=== PATIENT | female | born 1970 | race Caucasian/White ===

== ENCOUNTER 2023-07-07 15:18 | Outpatient (CLI) | payer BC, SELFPAY | END 2023-07-07 15:19 | disposition home or self-care (01) | PROVIDERS: PCP Physician Assistant Medical; Visit Provider Physician Assistant Medical | DX: E87.6 Hypokalemia (principal); I10 Essential (primary) hypertension; I21.4 Non-ST elevation (NSTEMI) myocardial infarction; E78.5 Hyperlipidemia, unspecified | CPT/HCPCS: 80076; 83735; 84443; 87086 ==

== ENCOUNTER 2023-07-15 12:40 | Outpatient (CLI) | payer BC, SELFPAY | END 2023-07-15 12:41 | disposition home or self-care (01) | PROVIDERS: PCP Physician Assistant Medical; Visit Provider Family Medicine | DX: E78.5 Hyperlipidemia, unspecified (principal) | CPT/HCPCS: 80061 ==

== ENCOUNTER 2023-07-31 12:42 | Outpatient (CLI) | payer BC, SELFPAY ==
--- NOTE | 2023-07-31 13:00 | CRLHL7_ITS ---
For Patients: As a result of the Century Cures Act, medical imaging exams and procedure reports are released immediately into your electronic medical record. You may view this report before your referring provider. If you have questions, please contact your health care provider. INDICATION: Thoracic aneurysm TECHNIQUE: CT chest, abdomen and pelvis acquired with IV contrast. COMPARISON: CT 04/01/2022 FINDINGS: Rim calcified left thyroid nodule. Chest: Cardiovascular structures: 4.4 centimeter ascending thoracic aortic aneurysm. This is without significant change. Heart size normal. Normal caliber thoracic aorta. Mediastinum and mary: No mass or adenopathy. Lungs: Subpleural 5 millimeter nodule left lower lobe 4/65 unchanged Sears with Pleura and pericardium: No effusions. Chest wall and axilla: No mass or adenopathy. Abdomen and Pelvis: Liver: Fatty appearance of the liver. Liver is enlarged. Spleen: Unremarkable. Pancreas: Unremarkable. Gallbladder and bile ducts: Unremarkable. Kidneys: There is a cortical scarring within the left kidney. Kidneys otherwise unremarkable Adrenal glands: Unremarkable. GI tract: Diverticulosis. Vascular structures: Unremarkable. Lymph nodes: Unremarkable. Miscellaneous:. Small fat containing inguinal hernias. Pelvic Organs: Unremarkable. Bones: Unremarkable for age. IMPRESSION: 1. 4.5 centimeter ascending thoracic aortic aneurysm without change. 2. 5 millimeter peripheral left lower lobe nodule unchanged follow-up per Fleischner society guidelines. 3. Hepatomegaly. Fatty liver. Please note that all CT scans at this facility use dose modulation, iterative reconstruction, and/or weight-based dosing when appropriate to reduce radiation dose to as low as reasonably achievable. Dictated by Joselin Low MD @ 08/02/2023 1:54:51 PM (Electronically Signed)
[2023-07-31] MEDS: PERFLUTREN LIPID MICROSPHERES 2 ML VIAL IV (15:02)
== END 2023-07-31 12:43 | disposition home or self-care (01) ==
LOC: CT 12:43
PROVIDERS: PCP Physician Assistant Medical; Visit Provider Physician Assistant Medical
DX: I71.20 Thoracic aortic aneurysm, without rupture, unspecified (principal); K76.0 Fatty (change of) liver, not elsewhere classified
CPT/HCPCS: 71260; 74177; 93306; Q9957; Q9967

== ENCOUNTER 2024-02-02 09:47 | Outpatient (CLI) | payer BC, SELFPAY | END 2024-02-02 09:48 | disposition home or self-care (01) | PROVIDERS: PCP Physician Assistant Medical; Visit Provider Physician Assistant Medical | DX: E78.2 Mixed hyperlipidemia (principal) | CPT/HCPCS: 80053; 80061; 84443 ==

== ENCOUNTER 2024-09-23 14:50 | Outpatient (CLI) | payer BC, SELFPAY | END 2024-09-23 14:51 | disposition home or self-care (01) | PROVIDERS: PCP Physician Assistant Medical; Visit Provider Physician Assistant Medical | DX: F10.10 Alcohol abuse, uncomplicated (principal); F41.9 Anxiety disorder, unspecified; F32.A Depression, unspecified | CPT/HCPCS: 80053; 82607; 82746; 84425 ==

== ENCOUNTER 2024-10-27 10:37 | Outpatient (CLI) | payer BC, SELFPAY | END 2024-10-27 10:38 | disposition home or self-care (01) | PROVIDERS: PCP Physician Assistant Medical; Visit Provider Physician Assistant Medical | DX: R79.89 Other specified abnormal findings of blood chemistry (principal); F10.10 Alcohol abuse, uncomplicated | CPT/HCPCS: 80053 ==

== ENCOUNTER 2025-04-07 09:09 | Outpatient (CLI) | payer BC, SELFPAY | END 2025-04-07 09:10 | disposition home or self-care (01) | PROVIDERS: PCP Physician Assistant Medical; Visit Provider Physician Assistant Medical | DX: F10.10 Alcohol abuse, uncomplicated (principal); K76.0 Fatty (change of) liver, not elsewhere classified; R60.0 Localized edema; M79.641 Pain in right hand; M79.642 Pain in left hand; M79.671 Pain in right foot; M79.672 Pain in left foot; Z13.21 Encounter for screening for nutritional disorder | CPT/HCPCS: 80053; 82306; 82550; 82607; 82747; 84425; 84550; 86038; 86140; 86200; 86431; 86812 ==